=== PATIENT | male | born 1990 | race African-American/Black ===

== ENCOUNTER 2020-07-22 10:04 | Emergency (ER) | payer OTHER ==
[2020-07-22] MEDS ORDERED: IBU800 MG PO ×2 (14:22→14:31)
[2020-07-22] MEDS ORDERED: CEPHALEXIN500 MG PO ×2 (14:22→14:31)
[2020-07-22] MEDS ORDERED: HYDROCODON-ACE1 EAC4 PO (16:07)
== END 2020-07-22 16:21 | disposition home or self-care (01) ==
LOC: ER1 10:04
DX: S62.665A Nondisplaced fracture of distal phalanx of left ring finger, initial encounter for closed fracture (principal); S60.052A Contusion of left little finger without damage to nail, initial encounter; Z23 Encounter for immunization; W22.8XXA Striking against or struck by other objects, initial encounter
CPT/HCPCS: 26770; 73130; 90471; 90715; 96372; 99283; J0690